=== PATIENT | male | born 1980 | race Two or more races ===

== ENCOUNTER 2025-02-20 20:05 | Emergency (ER) | payer MEDICAID, SELFPAY ==
[2025-02-20 20:09] VITALS: BP 163/82; PULSE 92; RESP 18; TEMP 36.7; O2SAT 95
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
[2025-02-20 20:28] VITALS: RESP 16
== END 2025-02-20 20:28 | disposition home or self-care (01) ==
LOC: SERX 20:30
PROVIDERS: Emergency Provider Emergency Medicine
DX: Z02.89 Encounter for other administrative examinations (principal); Z04.1 Encounter for examination and observation following transport accident
CPT/HCPCS: 99281